=== PATIENT | male | born 1985 | race Caucasian/White ===

== ENCOUNTER 2020-09-07 13:01 | Observation (INO) | payer OTHER ==
[2020-09-07] MEDS ORDERED: SODIUM CHLORIDE 0.9% 1,000 ML IV STA ×2 (14:20→15:02)
[2020-09-07] MEDS ORDERED: KETOROLAC 15 MG/ML 1 ML VIAL IVP STA (14:20)
[2020-09-07] MEDS ORDERED: ONDANSETRON 4 MG/2 ML VIAL IVP STA (14:20)
[2020-09-07 14:47] LABS: Basophils % (A) 0 %; Eosinophils # (A) 0.1 k/uL (0-0.7); Eosinophils % (A) 1 %; HCT 50.3 % (39.0-53.0); HGB 17.7 gm/dL (13.0-17.5); Lymphocytes # (A) 1.2 k/uL (1.0-4.8); Lymphocytes % (A) 9 %; MCH 31.7 pg (25.0-35.0); MCHC 35.1 g/dL (31.0-37.0); MCV 90.2 fL (80.0-100.0); Mean Platelet Volume 8.5; Monocytes # (A) 0.8 k/uL (0-1.0); Monocytes % (A) 6 %; Neutrophils # (A) 11.3 k/uL (1.3-7.7); Neutrophils % (A) 84 %; Platelet Count 204 k/uL (150-450); RBC 5.57 m/uL (4.30-5.90); RDW 12.3 % (11.5-15.5); WBC 13.5 k/uL (3.8-10.6)
[2020-09-07 14:52] LABS: Appearance,Urine Cloudy (Clear); Bacteria,Urine Rare /hpf; Bilirubin,Urine Negative (Negative); Blood,Urine Negative (Negative); Budding Yeast,Urine Occasional /hpf; Color,Urine Yellow; Glucose,Urine (UA) Negative (Negative); Ketones,Urine 4+ (Negative); Leukocyte Esterase,Urine Negative (Negative); Mucus,Urine Moderate /hpf; Nitrite,Urine Negative (Negative); Protein,Urine 1+ (Negative); RBC,Urine <1 /hpf (0-5); Specific Gravity,Urine 1.031 (1.001-1.035); Urobilinogen,Urine <2.0 mg/dL (<2.0); WBC,Urine 2 /hpf (0-5)
[2020-09-07 14:58] LABS: ALT 31 U/L (4-49); AST 25 U/L (17-59); African American GFR (CKD) >90 (>60 ml/min/1.73 sqM); Albumin 4.8 g/dL (3.5-5.0); Alkaline Phosphatase 125 U/L (38-126); Amylase 47 U/L (30-110); Anion Gap 9 mmol/L; Blood Urea Nitrogen 10 mg/dL (9-20); Calcium 9.8 mg/dL (8.4-10.2); Carbon Dioxide 25 mmol/L (22-30); Chloride 104 mmol/L (98-107); Glucose 114 mg/dL (74-99); Lipase 39 U/L (23-300); Non-African American GFR(CKD) >90 (>60 ml/min/1.73 sqM); Potassium 3.8 mmol/L (3.5-5.1); Sodium 138 mmol/L (137-145); Total Bilirubin 1.1 mg/dL (0.2-1.3); Total Protein 7.5 g/dL (6.3-8.2)
--- NOTE | 2020-09-07 15:00 | ED ---
Abdominal Pain HPI - General Chief Complaint: Abdominal Pain Stated Complaint: ABD pain Time Seen by Provider: 09/07/20 14:02 Source: patient Mode of arrival: ambulatory Limitations: no limitations - History of Present Illness Initial Comments: Patient is a 34-year-old male presenting to emergency Department with complaints of right-sided flank pain for the past week. Patient states his pain started about a week ago, he thought he just did something to his back at work. The pain was minimal then. Patient states yesterday morning his pain intensified, 9/10 on the pain scale. He states he is having nausea and vomiting as well. He describes the pain as in the right flank with radiation towards the right lower quadrant and his groin. Patient states he went to [facility] yesterday, they did lab work and a CT which did not show any findings. They diagnosed with a muscle strain. He was prescribed tramadol and a muscle relaxer, he has been taking these but he is still having a lot of discomfort. He states this pain comes and goes. He denies any fevers but is having sweats and chills when his pain increases. He denies history of abdominal surgeries. The regular bowel movements, denies hematuria or dysuria. He denies any chest pain or shortness of breath. He has no further complaints at this time. - Related Data Allergies Allergy/AdvReac Type Severity Reaction Status Date / Time Penicillins Allergy Unknown Verified 09/07/20 13:34 Childhood Review of Systems ROS Statement: Those systems with pertinent positive or pertinent negative responses have been documented in the HPI. ROS Other: All systems not noted in ROS Statement are negative. Past Medical History Past Medical History: No Reported History History of Any Multi-Drug Resistant Organisms: None Reported Past Surgical History: No Surgical Hx Reported Past Psychological History: No Psychological Hx Reported Smoking Status: Current every day smoker Past Alcohol Use History: Occasional Past Drug Use History: None Reported General Exam - General Exam Comments Initial Comments: GENERAL: Patient is well-developed and well-nourished. Patient is nontoxic and in no acute distress. HEAD: Atraumatic, normocephalic. EYES: Pupils equal round and reactive to light, extraocular movements intact, sclera anicteric, conjunctiva are normal. Eyelids were unremarkable. ENT: Nares patent, oropharynx clear without exudates. Moist mucous membranes. NECK: Normal range of motion, supple without lymphadenopathy or JVD. LUNGS: Unlabored respirations. Breath sounds clear to auscultation bilaterally and equal. No wheezes rales or rhonchi. HEART: Regular rate and rhythm without murmurs, rubs or gallops. ABDOMEN: Soft, mild tenderness with palpation of the right side of the abdomen, normoactive bowel sounds. No guarding, no rebound. No masses appreciated. : Deferred MUSCULOSKELETAL: Normal extremities with adequate strength and normal range of motion, no pitting or edema. No clubbing or cyanosis. NEUROLOGICAL: Patient is alert and oriented x 3. Motor and sensory are also intact. Cranial nerves II through XII grossly intact. Symmetrical smile. Normal speech, normal gait. PSYCH: Normal mood, normal affect. SKIN: Warm, Dry, normal turgor, no rashes or lesions noted. Limitations: no limitations Course Vital Signs 09/07/20 09/07/20 13:31 16:09 Temperature 98.5 F Pulse Rate 84 72 Respiratory 18 18 Rate Blood Pressure 180/109 163/96 O2 Sat by Pulse 98 98 Oximetry Medical Decision Making - Medical Decision Making Patient is a 34-year-old male here with right flank pain with radiation towards the right groin since yesterday morning. Denies any fevers, his vitals are stable except for being hypertensive. Labs show a slight white count 13.5, this is most likely reactive as he does not have a fever, no source of infection. Rest of labs are normal, lipase is normal. Patient does have 4+ ketones in the urine, rare bacteria. CT of the abdomen shows fluids scattered within the small bowel levels, could be enteritis or nonspecific. No signs of appendicitis. Patient given a total of liter and half of fluids, pain control and Zofran, he still appears uncomfortable. I discussed these findings with the patient. Patient is really concerned about going home and having the same things happen as last night. Patient will be admitted for observation, continued on fluids. Patient accepted by Dr. Cuevas. He is in agreement with this plan of care. Case discussed with Dr. Hernandez. - Lab Data Result diagrams: 09/07/20 14:30 09/07/20 14:30 Lab Results 09/07/20 09/07/20 09/07/20 Range/Units 14:30 14:30 14:30 WBC 13.5 H (3.8-10.6) k/uL RBC 5.57 (4.30-5.90) m/uL Hgb 17.7 H (13.0-17.5) gm/dL Hct 50.3 (39.0-53.0) % MCV 90.2 (80.0-100.0) fL MCH 31.7 (25.0-35.0) pg MCHC 35.1 (31.0-37.0) g/dL RDW 12.3 (11.5-15.5) % Plt Count 204 (150-450) k/uL MPV 8.5 Neutrophils % 84 % Lymphocytes % 9 % Monocytes % 6 % Eosinophils % 1 % Basophils % 0 % Neutrophils # 11.3 H (1.3-7.7) k/uL Lymphocytes # 1.2 (1.0-4.8) k/uL Monocytes # 0.8 (0-1.0) k/uL Eosinophils # 0.1 (0-0.7) k/uL Basophils # 0.0 (0-0.2) k/uL Sodium 138 (137-145) mmol/L Potassium 3.8 (3.5-5.1) mmol/L Chloride 104 (98-107) mmol/L Carbon Dioxide 25 (22-30) mmol/L Anion Gap 9 mmol/L BUN 10 (9-20) mg/dL Creatinine 0.83 (0.66-1.25) mg/dL Est GFR (CKD-EPI)AfAm >90 (>60 ml/min/1.73 sqM) Est GFR (CKD-EPI)NonAf >90 (>60 ml/min/1.73 sqM) Glucose 114 H (74-99) mg/dL Calcium 9.8 (8.4-10.2) mg/dL Total Bilirubin 1.1 (0.2-1.3) mg/dL AST 25 (17-59) U/L ALT 31 (4-49) U/L Alkaline Phosphatase 125 (38-126) U/L Total Protein 7.5 (6.3-8.2) g/dL Albumin 4.8 (3.5-5.0) g/dL Amylase 47 (30-110) U/L Lipase 39 (23-300) U/L Urine Color Yellow Urine Appearance Cloudy (Clear) Urine pH 7.0 (5.0-8.0) Ur Specific [place] 1.031 (1.001-1.035) Urine Protein 1+ H (Negative) Urine Glucose (UA) Negative (Negative) Urine Ketones 4+ H (Negative) Urine Blood Negative (Negative) Urine Nitrite Negative (Negative) Urine Bilirubin Negative (Negative) Urine Urobilinogen <2.0 (<2.0) mg/dL Ur Leukocyte Esterase Negative (Negative) Urine RBC <1 (0-5) /hpf Urine WBC 2 (0-5) /hpf Urine Bacteria Rare H (None) /hpf Urine Mucus Moderate H (None) /hpf Urine Yeast (Budding) Occasional H (None) /hpf Disposition Clinical Impression: Dehydration, Abdominal pain Disposition: ADMITTED IP TO THIS [facility] Condition: Stable Is patient prescribed a controlled substance at d/c from ED?: No Referrals: Jose Spencer MD [Primary Care Provider] - 1-2 days Decision Date: 09/07/20 Decision Time: 16:59
--- NOTE | 2020-09-07 15:17 | CT ---
EXAMINATION TYPE: CT abdomen pelvis w con DATE OF EXAM: 09/07/2020 COMPARISON: NONE HISTORY: 34-year-old male Right sided abdominal pain. TECHNIQUE: Contiguous axial scanning of the abdomen and pelvis following administration of 100 ml Iso parisa 300 IV contrast. Delayed images through the kidneys and coronal/sagittal reconstructions perform ed. CT DLP: 943.8 mGycm Automated exposure control for dose reduction was used. FINDINGS: Heart normal size without pericardial effusion. Lung bases clear without pleural effusion. No focal liver lesion or biliary ductal dilatation. Portal venous system is patent. Gallbladder, adrenal glands, kidneys, spleen, and pancreas appear within normal limits. No dilated small bowel, free fluid, or free air. No mesenteric or retroperitoneal lymphadenopathy. Some scattered fluid within small bowel loops throughout the abdomen. Normal appendix. Mild stool burden. No pericolonic inflammatory change. Bladder nondistended. Prostate gland measures 4.3 cm wide, mildly enlarged. No abnormal fluid collect ion in the pelvis or pelvic lymphadenopathy. Pelvic phleboliths. Bones: No osseous destructive process. IMPRESSION: 1. FLUID SCATTERED WITHIN SMALL BOWEL LOOPS THROUGHOUT THE ABDOMEN. THIS COULD BE TRANSIENT OR COULD REPRESENT A NONSPECIFIC MILD ENTERITIS. 2. OTHERWISE, NO ACUTE INFLAMMATORY PROCESS IDENTIFIED TO EXPLAIN THE PATIENT'S SYMPTOMS. NORMAL APPE NDIX. 3. MILD PROSTATOMEGALY AT 4.3 CM WIDE.
[2020-09-07] MEDS ORDERED: MORPHINE SULFATE 4 MG/ML SYRINGE IVP STA (15:22)
[2020-09-07] MEDS ORDERED: NALOXONE 0.4 MG/ML 1 ML VIAL IV PRN (16:55)
[2020-09-07] MEDS ORDERED: ACETAMINOPHEN TAB 325 MG TAB PO PRN (16:55)
[2020-09-07] MEDS ORDERED: ONDANSETRON 4 MG/2 ML VIAL IVP PRN (16:55)
[2020-09-07] MEDS: DEXTROSE 5%-0.45% NACL 1,000 ML IV SCH ×2 (17:27→22:25)
[2020-09-07] MEDS: KETOROLAC 15 MG/ML 1 ML VIAL IVP PRN (17:43)
--- NOTE | 2020-09-07 22:34 | P.HPIM ---
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 Patient follows with Dr. Spencer. Patient got on Monday that is 2 days ago. Patient for 1 week has noticed some sprain in the right flank area. But he is able to continue his work and no trouble eating drinking. Monday night patient said having increasing right-sided lower abdominal pain in the flank area going down to the pelvic area. He has some chills and did break out in a sweat also nauseated. Normally has 2 or 3 bowel movements per day. 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 Patient's pain was rather significant. Yesterday evening he went to [facility]. The computed tomography scan of the abdomen. Was unremarkable. Was sent home. Patient and decided to come here as symptoms were getting worse. No urinary symptoms. Has not had a bowel movement since yesterday. Nausea. Patient's at the bedside Review of systems: GEN.: Tired, chills EYES: None HEENT: None NECK: None RESPIRATORY: None CARDIOVASCULAR: None GASTROINTESTINAL: As above GENITOURINARY: None MUSCULOSKELETAL: None LYMPHATICS: None HEMATOLOGICAL: None PSYCHIATRY: None NEUROLOGICAL: None Past medical history to include: Unremarkable Social history: 3 days ago. Smokes a pack a day since age of 17. Drinks about 10-12 beers once a week. 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 EYES: Pupils equal. Conjunctiva normal. HEENT: External appearance of nose and ears normal, oral cavity grossly normal. NECK: JVD not raised; masses not palpable. HEART: First and second heart sounds are normal; no edema. LUNGS: Respiratory rate normal; clear to auscultation. ABDOMEN: Soft, mild right lower quadrant tenderness, no guarding rigidity, liver spleen not palpable, no masses palpable. PSYCH: [Alert and oriented x3; mood and affect anxious l. NEUROLOGICAL: Cranial nerves grossly intact; no facial asymmetry, power and sensation grossly intact. LYMPHATICS: No lymph nodes palpable in the axilla and neck INVESTIGATIONS, reviewed in the clinical context: WBC 13.5 hemoglobin 7.7 platelets 204 potassium 3.8 creatinine 0.83 UA: Protein 1+, ketone 4+ Coronavirus [PCI]-not detected Computed tomography scan of the abdomen pelvis: Fluid scattered within the small bowel loops throughout the abdomen. Assessment and plan: -This is a patient who presents with over 24 hours of increasing lower abdominal pain, but bouts of perspiration nausea. No change in bowel habit no urinary symptoms. No obvious fever. Most likely enteritis, could be viral. Patient's abdominal examination is relatively benign. -Reactive leukocytosis Patient be placed on D5.45 at 20 mL an hour. Lovenox for DVT prophylaxis. Patient be started on a full liquid diet. Advance as tolerated. Does not appea r to be surgical at this point. Care discussed with the patient and at the bedside. Questions answered. Past Medical History Past Medical History: No Reported History History of Any Multi-Drug Resistant Organisms: None Reported Past Surgical History: No Surgical Hx Reported Past Psychological History: No Psychological Hx Reported Smoking Status: Current every day smoker Past Alcohol Use History: Occasional Past Drug Use History: None Reported Medications and Allergies Home Medications Medication Instructions Recorded Confirmed Type No Known Home Medications 09/07/20 09/07/20 History Allergies Allergy/AdvReac Type Severity Reaction Status Date / Time Penicillins Allergy Unknown Verified 09/07/20 17:15 Childhood Physical Exam Vitals: Vital Signs Temp Pulse Pulse Resp BP BP Pulse Ox 09/07/20 21:21 98.1 F 83 16 144/89 99 09/07/20 20:14 98.2 F 80 16 140/88 100 09/07/20 18:16 98.0 F 80 18 140/98 98 09/07/20 16:09 72 18 163/96 98 09/07/20 13:31 98.5 F 84 18 180/109 98 Intake and Output 09/07/20 09/07/20 09/07/20 06:59 14:59 22:59 Other: Weight 90.718 kg Results CBC & Chem 7: 09/07/20 14:30 09/07/20 14:30 Labs: Abnormal Lab Results - Last 24 Hours (Table) 09/07/20 09/07/20 09/07/20 Range/Units 14:30 14:30 14:30 WBC 13.5 H (3.8-10.6) k/uL Hgb 17.7 H (13.0-17.5) gm/dL Neutrophils # 11.3 H (1.3-7.7) k/uL Glucose 114 H (74-99) mg/dL Urine Protein 1+ H (Negative) Urine Ketones 4+ H (Negative) Urine Bacteria Rare H (None) /hpf Urine Mucus Moderate H (None) /hpf Urine Yeast (Budding) Occasional H (None) /hpf
[2020-09-08] MEDS: DEXTROSE 5%-0.45% NACL 1,000 ML IV SCH ×3 (04:03→12:04)
[2020-09-08 06:44] LABS: Basophils # (A) 0.1 k/uL (0-0.2); Basophils % (A) 1 %; Eosinophils # (A) 0.1 k/uL (0-0.7); Eosinophils % (A) 1 %; HCT 46.8 % (39.0-53.0); HGB 16.2 gm/dL (13.0-17.5); Lymphocytes # (A) 2.7 k/uL (1.0-4.8); Lymphocytes % (A) 30 %; MCH 32.1 pg (25.0-35.0); MCHC 34.7 g/dL (31.0-37.0); MCV 92.3 fL (80.0-100.0); Mean Platelet Volume 8.3; Monocytes # (A) 0.6 k/uL (0-1.0); Monocytes % (A) 7 %; Neutrophils # (A) 5.4 k/uL (1.3-7.7); Neutrophils % (A) 60 %; Platelet Count 176 k/uL (150-450); RBC 5.07 m/uL (4.30-5.90); RDW 12.6 % (11.5-15.5)
[2020-09-08 06:54] LABS: ALT 21 U/L (4-49); AST 21 U/L (17-59); African American GFR (CKD) >90 (>60 ml/min/1.73 sqM); Albumin 3.6 g/dL (3.5-5.0); Albumin/Globulin Ratio 1.5; Alkaline Phosphatase 85 U/L (38-126); Anion Gap 3 mmol/L; Blood Urea Nitrogen 10 mg/dL (9-20); Calcium 8.6 mg/dL (8.4-10.2); Carbon Dioxide 27 mmol/L (22-30); Chloride 107 mmol/L (98-107); Globulin 2.4 g/dL; Glucose 104 mg/dL (74-99); Non-African American GFR(CKD) >90 (>60 ml/min/1.73 sqM); Potassium 4.2 mmol/L (3.5-5.1); Sodium 137 mmol/L (137-145); Total Bilirubin 0.6 mg/dL (0.2-1.3)
[2020-09-08] MEDS: MORPHINE SULFATE 2 MG/ML SYRINGE IVP PRN ×2 (08:28→20:12)
[2020-09-08] MEDS: KETOROLAC 15 MG/ML 1 ML VIAL IVP PRN (10:23)
[2020-09-08] MEDS: LACTATED RINGERS 1,000 ML IV SCH ×2 (12:03→21:34)
--- NOTE | 2020-09-08 12:54 | P.GSCN ---
History of Present Illness Consult date: 09/08/20 Reason for Consult: Abdominal pain History of present illness: 34-year-old male presents to the ER at [place] on Monday with complaints of right flank discomfort. Pain was associated with nausea and diminished appetite. He had a CAT scan performed and was discharged home. Came back to the ER locally yesterday with increasing discomfort now radiating from the right flank to the right lower quadrant. Appetite has improved and he is tolerating full liquids. Pain persists this morning. No history of similar events. Patient did pull a back muscle while working about 1 week ago. 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 No bowel movement since Monday. He had a repeat CAT scan performed here with contrast which showed a normal-appearing appendix and no inflammatory changes. Denies hematuria or dysuria. No sick contacts. White blood cell count initially elevated but normalized now. Says it does not hurt when his abdomen is pressed upon only when he moves about. Review of Systems The patient denies any acute changes in vision or hearing, no dysphagia or odynophagia, no chest pain or shortness of breath, no dysuria or hematuria, no headache, no runny nose, no rectal bleeding or melena, no unexplained weight loss Past Medical History Past Medical History: No Reported History History of Any Multi-Drug Resistant Organisms: None Reported Past Surgical History: No Surgical Hx Reported Past Anesthesia/Blood Transfusion Reactions: No Reported Reaction Past Psychological History: No Psychological Hx Reported Smoking Status: Current every day smoker Past Alcohol Use History: Occasional Past Drug Use History: None Reported Medications and Allergies Home Medications Medication Instructions Recorded Confirmed Type No Known Home Medications 09/07/20 09/07/20 History Allergies Allergy/AdvReac Type Severity Reaction Status Date / Time Penicillins Allergy Unknown Verified 09/07/20 17:15 Childhood Surgical - Exam Vital Signs Temp Pulse Resp BP Pulse Ox 98.5 F 84 18 180/109 98 09/07/20 13:31 09/07/20 13:31 09/07/20 13:31 09/07/20 13:31 09/07/20 13:31 Physical exam: General: Well-developed, well-nourished HEENT: Normocephalic, sclerae nonicteric Abdomen: Nontender, nondistended Extremities: No edema Neuro: Alert and oriented Results - Labs 09/08/20 06:07 09/08/20 06:07 Abnormal Lab Results - Last 24 Hours (Table) 09/07/20 09/07/20 09/07/20 Range/Units 14:30 14:30 14:30 WBC 13.5 H (3.8-10.6) k/uL Hgb 17.7 H (13.0-17.5) gm/dL Neutrophils # 11.3 H (1.3-7.7) k/uL Glucose 114 H (74-99) mg/dL Total Protein (6.3-8.2) g/dL Urine Protein 1+ H (Negative) Urine Ketones 4+ H (Negative) Urine Bacteria Rare H (None) /hpf Urine Mucus Moderate H (None) /hpf Urine Yeast (Budding) Occasional H (None) /hpf 09/08/20 Range/Units 06:07 WBC (3.8-10.6) k/uL Hgb (13.0-17.5) gm/dL Neutrophils # (1.3-7.7) k/uL Glucose 104 H (74-99) mg/dL Total Protein 6.0 L (6.3-8.2) g/dL Urine Protein (Negative) Urine Ketones (Negative) Urine Bacteria (None) /hpf Urine Mucus (None) /hpf Urine Yeast (Budding) (None) /hpf Diabetes panel 09/07/20 09/08/20 Range/Units 14:30 06:07 Sodium 138 137 (137-145) mmol/L Potassium 3.8 4.2 (3.5-5.1) mmol/L Chloride 104 107 (98-107) mmol/L Carbon Dioxide 25 27 (22-30) mmol/L BUN 10 10 (9-20) mg/dL Creatinine 0.83 0.84 (0.66-1.25) mg/dL Glucose 114 H 104 H (74-99) mg/dL Calcium 9.8 8.6 (8.4-10.2) mg/dL AST 25 21 (17-59) U/L ALT 31 21 (4-49) U/L Alkaline Phosphatase 125 85 (38-126) U/L Total Protein 7.5 6.0 L (6.3-8.2) g/dL Albumin 4.8 3.6 (3.5-5.0) g/dL Calcium panel 09/07/20 09/08/20 Range/Units 14:30 06:07 Calcium 9.8 8.6 (8.4-10.2) mg/dL Albumin 4.8 3.6 (3.5-5.0) g/dL Pituitary panel 09/07/20 09/08/20 Range/Units 14:30 06:07 Sodium 138 137 (137-145) mmol/L Potassium 3.8 4.2 (3.5-5.1) mmol/L Chloride 104 107 (98-107) mmol/L Carbon Dioxide 25 27 (22-30) mmol/L BUN 10 10 (9-20) mg/dL Creatinine 0.83 0.84 (0.66-1.25) mg/dL Glucose 114 H 104 H (74-99) mg/dL Calcium 9.8 8.6 (8.4-10.2) mg/dL Adrenal panel 09/07/20 09/08/20 Range/Units 14:30 06:07 Sodium 138 137 (137-145) mmol/L Potassium 3.8 4.2 (3.5-5.1) mmol/L Chloride 104 107 (98-107) mmol/L Carbon Dioxide 25 27 (22-30) mmol/L BUN 10 10 (9-20) mg/dL Creatinine 0.83 0.84 (0.66-1.25) mg/dL Glucose 114 H 104 H (74-99) mg/dL Calcium 9.8 8.6 (8.4-10.2) mg/dL Total Bilirubin 1.1 0.6 (0.2-1.3) mg/dL AST 25 21 (17-59) U/L ALT 31 21 (4-49) U/L Alkaline Phosphatase 125 85 (38-126) U/L Total Protein 7.5 6.0 L (6.3-8.2) g/dL Albumin 4.8 3.6 (3.5-5.0) g/dL Assessment and Plan (1) Abdominal pain Narrative/Plan: 34-year-old male with unusual presentation of right flank and abdominal pain. C AT scan reviewed. No bowel pathology noted. Patient states he was having right-sided back pain after lifting heavy objects at work 1 week ago. Patient questioned whether the pain is having now could be related to that or not. Certainly musculoskeletal source of pain is a reasonable option. Continue advancing diet. Continue observation. We'll follow. Current Visit: Yes Status: Acute Code(s): R10.9 - UNSPECIFIED ABDOMINAL PAIN SNOMED Code(s): 42954594
--- NOTE | 2020-09-08 19:11 | P.PN ---
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 Patient follows with Dr. Spencer. Patient got on Monday that is 2 days ago. Patient for 1 week has noticed some sprain in the right flank area. But he is able to continue his work and no trouble eating drinking. Monday night patient said having increasing right-sided lower abdominal pain in the flank area going down to the pelvic area. He has some chills and did break out in a sweat also nauseated. Normally has 2 or 3 bowel movements per day. 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 Patient's pain was rather significant. Yesterday evening he went to [facility]. The computed tomography scan of the abdomen. Was unremarkable. Was sent home. Patient and decided to come here as symptoms were getting worse. No urinary symptoms. Has not had a bowel movement since yesterday. Nausea. Patient's at the bedside Admitted with right lower abdominal pain. Could be enteritis. Antibiotics were held. IV fluids. Today: Feeling a bit better. Still this morning and increasing pain in the right lower quadrant area just above the hip area. Does not have an appetite. No nausea vomiting. No fever. at the bedside. No urinary or GI symptoms. Nausea much improved. Review of systems: Was done for constitutional, cardiovascular, GI, pulmonary. relevant finding as above Active Medications Acetaminophen (Acetaminophen Tab 325 Mg Tab) 650 mg PO Q6HR PRN PRN Reason: Mild Pain or Fever > 100.5 Last Admin: 09/07/20 22:24 Dose: 650 mg Documented by: Lactated Ringer's (Lactated Ringers) 1,000 mls @ 125 mls/hr IV .Q8H GIRMA Last Admin: 09/08/20 12:03 Dose: 125 mls/hr Documented by: Ketorolac Tromethamine (Ketorolac 15 Mg/Ml 1 Ml Vial) 15 mg IVP Q6HR PRN PRN Reason: Moderate Pain Stop: 09/10/20 16:56 Last Admin: 09/08/20 10:23 Dose: 15 mg Documented by: Morphine Sulfate (Morphine Sulfate 2 Mg/Ml Syringe) 2 mg IVP Q2H PRN PRN Reason: Pain/Discomfort Last Admin: 09/08/20 08:28 Dose: 2 mg Documented by: Naloxone HCl (Naloxone 0.4 Mg/Ml 1 Ml Vial) 0.2 mg IV Q2M PRN PRN Reason: Opioid Reversal Ondansetron HCl (Ondansetron 4 Mg/2 Ml Vial) 4 mg IVP Q8HR PRN PRN Reason: Nausea And Vomiting Past medical history to include: Unremarkable Social history: 3 days ago. Smokes a pack a day since age of 17. Drinks about 10-12 beers once a week. 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 EYES: Pupils equal. Conjunctiva normal. NECK: JVD not raised; masses not palpable. HEART: First and second heart sounds are normal; no edema. LUNGS: Respiratory rate normal; clear to auscultation. ABDOMEN: Soft, mild right lower quadrant tenderness, no guarding rigidity, liver spleen not palpable, no masses palpable. PSYCH: [Alert and oriented x3; mood and affect anxious INVESTIGATIONS, reviewed in the clinical context: : WBC 9 hemoglobin 16.2 potassium 4.2 creatinine 0.84 WBC 13.5 hemoglobin 7.7 platelets 204 potassium 3.8 creatinine 0.83 UA: Protein 1+, ketone 4+ Coronavirus [PCI]-not detected Computed tomography scan of the abdomen pelvis: Fluid scattered within the small bowel loops throughout the abdomen. Assessment and plan: -Possible acute viral enteritis: This is a patient who presents with over 24 hours of increasing lower abdominal pain, but bouts of perspiration nausea. No change in bowel habit no urinary symptoms. No obvious fever. . Patient's abdominal examination is relatively benign. Patient's abdominal examination relatively benign. Could be muscular pain. Get a surgical opinion -Reactive leukocytosis-improved -Ketonuria,'s from starvation IV fluids Continue IV fluids. Consult surgery. Discussed with the patient and . Encourage oral intake
[2020-09-08] MEDS: FAMOTIDINE 20 MG TAB PO SCH (20:12)
[2020-09-09] MEDS: LACTATED RINGERS 1,000 ML IV SCH ×3 (04:13→19:53)
[2020-09-09] MEDS: MORPHINE SULFATE 2 MG/ML SYRINGE IVP PRN (07:38)
[2020-09-09] MEDS: FAMOTIDINE 20 MG TAB PO SCH ×2 (07:38→19:53)
--- NOTE | 2020-09-09 12:48 | P.PN ---
<Mary Garcia - Last Filed: 09/09/20 12:41> Subjective Progress Note Date: 09/09/20 Chief complaint: Abdominal pain HISTORY OF PRESENT ILLNESS: Patient is complaining of right sided abdominal and flank pain. He ate [employer] last night with no increase in pain. He reports his pain is similar to his pain on admission. He is complaining of swelling in the right lower abdomen compared to the left. He had a normal BM this morning. Afebrile WBC 9.0 PHYSICAL EXAM: VITAL SIGNS: Reviewed. GENERAL: Well-developed in no acute distress. HEENT: No sclera icterus. Extraocular movements grossly intact. Moist buccal mucosa. Head is atraumatic, normocephalic. ABDOMEN: Soft. Nondistended. Minimal swelling noted on the right lower abdomen. Minimal tenderness with palpation NEUROLOGIC: Awake and alert. ASSESSMENT: 1. Abdominal pain located on the right flank and right lower abdomen. No bowel pathology noted on CAT scan. Patient's pain may be musculoskeletal. PLAN: -Further recommendations forthcoming per surgeon -Continue pain medication as needed Physician Instant Print Operator note has been reviewed by physician. Signing provider agrees with the documented findings, assessment, and plan of care. Objective - Vital Signs Vital signs: Vital Signs Temp 97.7 F 09/09/20 07:00 Pulse 78 09/09/20 07:00 Resp 16 09/09/20 07:00 BP 134/88 09/09/20 07:00 Pulse Ox 95 09/09/20 07:00 Intake & Output 09/08/20 09/09/20 09/09/20 18:59 06:59 18:59 Other: Voiding Method Toilet # Voids 2 1 - Labs CBC & Chem 7: 09/08/20 06:07 09/08/20 06:07 <Johnny Underwood - Last Filed: 09/09/20 20:47> Subjective Patient says his symptoms have improved slightly. No increased discomfort with eating solid foods last night. He is afebrile. He thinks his abdominal wall in the right lower abdomen is more swollen. His exam findings are fairly stable with mild right abdominal wall tenderness and fairly symmetric abdominal appearance. Agree with plans for orthopedic evaluation. We'll follow. Objective - Vital Signs Vital signs: Vital Signs Temp 98 F 09/09/20 19:21 Pulse 78 09/09/20 19:21 Resp 16 09/09/20 19:21 BP 132/83 09/09/20 19:21 Pulse Ox 96 09/09/20 19:21 Intake & Output 09/09/20 09/09/20 09/10/20 06:59 18:59 06:59 Intake Total 0 Balance 0 Intake: Oral 0 Other: Voiding Method Toilet # Voids 1 3 - Labs CBC & Chem 7: 09/08/20 06:07 09/08/20 06:07 Assessment and Plan (1) Abdominal pain Current Visit: Yes Status: Acute Code(s): R10.9 - UNSPECIFIED ABDOMINAL PAIN SNOMED Code(s): 06170702
--- NOTE | 2020-09-09 13:24 | XR ---
EXAM TYPE: LUMBAR SPINE X RAY SERIES COMPARISON: NONE HISTORY: Pain TECHNIQUE: 4 views are submitted. FINDINGS: Alignment is anatomic. The pedicles are intact. The transverse processes are intact. There is no s pondylolysis or spondylolisthesis. IMPRESSION: 1. No acute process.
--- NOTE | 2020-09-09 14:33 | CT ---
EXAMINATION TYPE: CT lumbar spine wo con DATE OF EXAM: 09/09/2020 COMPARISON: HISTORY: right lumbar pain CT DLP: 992 mGycm CONTRAST: None TECHNIQUE: CT of the lumbar spine is performed on a spiral scan at 3 mm thick sections. Reconstructed images are performed in the coronal and sagittal planes. FINDINGS: CT is performed from T11 through S1. Posterior endplate spurring is present at T12-L1. This has mild to moderate anterior thecal sac compr ession. AP spinal canal stenosis however is not evident measuring 1.1 cm in AP dimension. No obvious cord compression is identified. MRI could closer evaluate this finding. Remaining disc levels appear normal without focal disc herniation, significant disc bulge, spinal can al stenosis or neural foraminal stenosis. IMPRESSION: Endplate spurring with posterior extension into the spinal canal contributing to narrowing without AP spinal canal stenosis. Further evaluation can be performed with MRI.
[2020-09-09] MEDS ORDERED: DEXAMETHASONE SOD PHOSPHATE 10 MG/ML 1 ML VIAL IV STA (16:20)
--- NOTE | 2020-09-09 17:11 | P.CNOR ---
History of Present Illness - [facility] Consult date: 09/09/20 Consult reason: low back pain History of present illness: Patient is a 34-year-old male who presented to [facility] on 09/07/2020 for further evaluation of low back pain/right lower quadrant pain. Patient apparently has been noticing the discomfort in his low back for about a week or so, over the weekend the pain did seem to worsen which prompted him to be evaluated at [facility]. They diagnosed the patient with a strain, he was discharged with tramadol and Flexeril. Patient's pain worsened in the migrated more to the right lower quadrant, he reported [facility] at that time. Patient was admitted under internal medicine, he was then followed by Gen. surgery. Our orthopedic team was consulted today for further evaluation. Both x-rays and computed tomography scan of the lumbar spine have been ordered by internal medicine. Patient was an elevated today at bedside, his is present with him. He is resting comfortably in his bed. He notes mostly discomfort now seems to be the anterior flank and more the right lower quadrant of his abdomen. He feels that when he flexes forward and moves as one most of the discomfort is there. He states that the IV pain medication is helping. He did not get much relief with the Toradol or Tylenol was given. General surgery has found no acute abdominal processes at this time. Patient states that he did lift a heavy cooler this past Monday but did not get any acute pain at the time of that incident. 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 Patient denies any previous surgery of the cervical, thoracic or lumbar spine. He denies any general surgery involving the abdomen. currently patient has no headaches, lightheadedness, chest pain, shortness of breath, nausea vomiting, fever or chills. He denies any loss of bowel or bladder function at this time. He denies any radicular pain symptoms involving the upper extremities or lower extremities. He denies any numbness or tingling of the genital area or perineal area. Review of Systems Constitutional: Reports as per HPI Past Medical History Past Medical History: No Reported History History of Any Multi-Drug Resistant Organisms: None Reported Past Surgical History: No Surgical Hx Reported Past Anesthesia/Blood Transfusion Reactions: No Reported Reaction Past Psychological History: No Psychological Hx Reported Smoking Status: Current every day smoker Past Alcohol Use History: Occasional Past Drug Use History: None Reported Medications and Allergies Home Medications Medication Instructions Recorded Confirmed Type Naproxen [Naprosyn] 250 mg PO BID #14 tab 09/09/20 Rx RX: Acetaminophen Tab [Tylenol] 650 mg PO Q6HR PRN tab 09/09/20 Rx RX: Famotidine [Pepcid] 20 mg PO BID #60 tab 09/09/20 Rx Allergies Allergy/AdvReac Type Severity Reaction Status Date / Time Penicillins Allergy Unknown Verified 09/07/20 17:15 Childhood Physical Examination Gen: AOx3, NAD VSS stable at this time Palpation: No significant tenderness noted with palpation of the lower thoracic or lumbar region, both midline or paraspinal ROM: Patient was visualized going from a lying position to both the seated in standing position in the hospital room. He had some discomfort in the right lower quadrant of the abdomen when flexing forward in bed. Full range of motion in all major muscle groups of the upper and lower bilaterally extremities No discomfort is noted in the groin or lateral hip with both hip flexion along with internal and external rotation of the right lower extremity Sensory Exam: Senory exam to light touch is intact C5-T1 Senosry exam to light touch is intact L2-S1 Motor: 55 strength noted in the bilateral upper extremities with regards to shoulder abduction, elbow flexion, elbow extension, wrist extension, wrist flexion, finge r intrinsic 55 strength noted in the bilateral lower extremities with hip flexion, knee flexion, knee extension, plantar flexion, dorsiflexion, EHL, FHL Reflexes: 2/4 in all UE and LE Negative Kourtney's bilaterally, negative Babinski bilaterally, negative clonus bilaterally Special tests: Negative straight leg raise bilaterally Results - Labs Labs: H & H 09/07/20 09/08/20 Range/Units 14:30 06:07 Hgb 17.7 H 16.2 (13.0-17.5) gm/dL Hct 50.3 46.8 (39.0-53.0) % Result Diagrams: 09/08/20 06:07 09/08/20 06:07 - Diagnostic results CT Scan - lumbar: report reviewed, image reviewed (X-rays and computed tomography scan of the lumbar spine were reviewed along with reports. Report notes no acute fractures or dislocations. Notable endplate spurring at T12-1, they suggest mild spinal canal stenosis at that level.) Assessment and Plan Assessment: Low back pain Right flank pain/right lower quadrant pain T12-L1 spondylosis Plan: I was able to discuss the case, including both physical exam findings and imaging studies my attending Dr. Perez. No acute orthopedic surgical intervention recommended at this time Difficult to assess if the symptoms the patient is having in the right lower quadrant due to radicular symptoms at the T12-L1 region or a abdominal muscle strain. Patient noted no significant improvement with Toradol treatment along with a muscle relaxer. Pain control, one dose of 10 mg IV Decadron initially, plan to reassess on 09/10/2020 This patient's symptoms improve, anticipated discharge home on Medrol Dosepak along with muscle relaxer. Recommend weight-bear as tolerated at this time GI and DVT prophylaxis per primary medical service Further recommendations to follow after reevaluation 09/10/2020 Time with Patient: Less than 30
[2020-09-09] MEDS: NAPROXEN 250 MG TAB PO SCH ×2 (17:13→19:52)
--- NOTE | 2020-09-09 21:42 | P.PN ---
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 Patient follows with Dr. Spencer. Patient got on Monday that is 2 days ago. Patient for 1 week has noticed some sprain in the right flank area. But he is able to continue his work and no trouble eating drinking. Monday night patient said having increasing right-sided lower abdominal pain in the flank area going down to the pelvic area. He has some chills and did break out in a sweat also nauseated. Normally has 2 or 3 bowel movements per day. 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 Patient's pain was rather significant. Yesterday evening he went to [facility]. The computed tomography scan of the abdomen. Was unremarkable. Was sent home. Patient and decided to come here as symptoms were getting worse. No urinary symptoms. Has not had a bowel movement since yesterday. Nausea. Patient's at the bedside Admitted with right lower abdominal pain. Could be enteritis. Antibiotics were held. IV fluids. Today: Still some decreased appetite. No fever no chills. Normal white count. No urinary or bowel symptoms. [place] to be possibly muscular. Rule out radicular pain from the lumbar spine. Ordered lumbar x-ray and computed tomography scan Review of systems: Was done for constitutional, cardiovascular, GI, pulmonary. relevant finding as above Active Medications Acetaminophen (Acetaminophen Tab 325 Mg Tab) 650 mg PO Q6HR PRN PRN Reason: Mild Pain or Fever > 100.5 Last Admin: 09/07/20 22:24 Dose: 650 mg Documented by: Famotidine (Famotidine 20 Mg Tab) 20 mg PO BID [facility] Last Admin: 09/09/20 19:53 Dose: 20 mg Documented by: Lactated Ringer's (Lactated Ringers) 1,000 mls @ 125 mls/hr IV .Q8H [facility] Last Admin: 09/09/20 19:53 Dose: 125 mls/hr Documented by: Ketorolac Tromethamine (Ketorolac 15 Mg/Ml 1 Ml Vial) 15 mg IVP Q6HR PRN PRN Reason: Moderate Pain Stop: 09/10/20 16:56 Last Admin: 09/08/20 10:23 Dose: 15 mg Documented by: Naloxone HCl (Naloxone 0.4 Mg/Ml 1 Ml Vial) 0.2 mg IV Q2M PRN PRN Reason: Opioid Reversal Naproxen (Naproxen 250 Mg Tab) 250 mg PO TID [facility] Last Admin: 09/09/20 19:52 Dose: 250 mg Documented by: Ondansetron HCl (Ondansetron 4 Mg/2 Ml Vial) 4 mg IVP Q8HR PRN PRN Reason: Nausea And Vomiting Past medical history to include: Unremarkable Social history: 3 days ago. Smokes a pack a day since age of 17. Drinks about 10-12 beers once a week. 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 EYES: Pupils equal. Conjunctiva normal. NECK: JVD not raised; masses not palpable. HEART: First and second heart sounds are normal; no edema. LUNGS: Respiratory rate normal; clear to auscultation. ABDOMEN: Soft, mild right lower quadrant tenderness, no guarding rigidity, liver spleen not palpable, no masses palpable. PSYCH: [Alert and oriented x3; mood and affect anxious INVESTIGATIONS, reviewed in the clinical context: Lumbar computed tomography scan: Posterior). Spotting at T12-L1 [id number] anterior thecal sac compression. Lumbar x-ray: Unremarkable : WBC 9 hemoglobin 16.2 potassium 4.2 creatinine 0.84 WBC 13.5 hemoglobin 7.7 platelets 204 potassium 3.8 creatinine 0.83 UA: Protein 1+, ketone 4+ Coronavirus [PCI]-not detected Computed tomography scan of the abdomen pelvis: Fluid scattered within the small bowel loops throughout the abdomen. Assessment and plan: -Possible acute viral enteritis: Being managed conservatively. -Possibly muscle spasm -Reactive leukocytosis-improved -Ketonuria,'s from starvation IV fluids Did order lumbar x-ray and computed tomography scan. Results as above. Orthopedic consulted.
[2020-09-10] MEDS: LACTATED RINGERS 1,000 ML IV SCH (04:21)
[2020-09-10 07:48] VITALS: BP 152/82; PULSE 77; RESP 17; TEMP 97.4
[2020-09-10] MEDS: FAMOTIDINE 20 MG TAB PO SCH (07:49)
[2020-09-10] MEDS: NAPROXEN 250 MG TAB PO SCH (07:49)
--- NOTE | 2020-09-10 08:28 | P.PN ---
Subjective Progress Note Date: 09/10/20 Principal diagnosis: Low back pain Right flank pain/right lower quadrant pain Right abdominal strain T12-L1 spondylosis Patient was evaluated at bedside, Dr. Perez was present during exam. Patient's symptoms seem to slightly improved since receiving the dose of IV steroids. Patient continues to deny any lightheadedness, chest pain, shortness of breath, nausea vomiting, genital cranial numbness, loss of bowel or bladder function, lower extremity paresthesias. Objective - Vital Signs Vital signs: Vital Signs Temp 97.4 F L 09/10/20 07:00 Pulse 77 09/10/20 07:51 Resp 17 09/10/20 07:51 BP 152/82 09/10/20 07:00 Pulse Ox 97 09/10/20 07:00 Intake & Output 09/09/20 09/10/20 09/10/20 18:59 06:59 18:59 Intake Total 0 Balance 0 Intake: Oral 0 Other: Voiding Method Toilet Toilet # Voids 3 2 - Exam Gen: AOx3, NAD VSS stable at this time Palpation: No significant tenderness noted with palpation of the lower thoracic or lumbar region, both midline or paraspinal ROM: Patient was visualized going from a lying position to both the seated in standing position in the hospital room. He had some discomfort in the right lower quadrant of the abdomen when flexing forward in bed. Full range of motion in all major muscle groups of the upper and lower bilaterally extremities No discomfort is noted in the groin or lateral hip with both hip flexion along with internal and external rotation of the right lower extremity Sensory Exam: Senory exam to light touch is intact C5-T1 Senosry exam to light touch is intact L2-S1 Motor: 55 strength noted in the bilateral upper extremities with regards to shoulder abduction, elbow flexion, elbow extension, wrist extension, wrist flexion, finger intrinsic 55 strength noted in the bilateral lower extremities with hip flexion, knee flexion, knee extension, plantar flexion, dorsiflexion, EHL, FHL Reflexes: 2/4 in all UE and LE Negative Kourtney's bilaterally, negative Babinski bilaterally, negative clonus bilaterally Special tests: Negative straight leg raise bilaterally - Labs CBC & Chem 7: 09/08/20 06:07 09/08/20 06:07 Assessment and Plan Assessment: Low back pain Right flank pain/right lower quadrant pain Right abdominal strain T12-L1 spondylosis Plan: Dr. Perez was available today bedside to discuss treatment options with patient. At this time he feels more musculoskeletal issue, likely an abdominal strain. Plan is for discharge home on Medrol Dosepak. Recommend utilizing Tylenol as needed. We discussed activity level modification, this will include limiting twisting and bending at the waist, and also avoiding heavy lifting Recommend weight-bear as tolerated at this time GI and DVT prophylaxis per primary medical service Other medical specialty recommendations Discharge planning: On an orthopedic standpoint patient is stable for discharge to home today. Our office information will be provided in chart for follow-up Time with Patient: Less than 30
--- NOTE | 2020-09-10 11:07 | P.PN ---
<Mary Garcia - Last Filed: 09/10/20 11:03> Subjective Progress Note Date: 09/10/20 Chief complaint: Abdominal pain HISTORY OF PRESENT ILLNESS: Patient reporting that his right sided abdominal and flank pain and swelling is slightly decreased than yesterday. He was seen by orthopedic service and diagnosed with a possible muscle strain. He was given a dose of dexamethasone and has been receiving Toradol. Patient reports some improvement in his symptoms. He is tolerating diet. He denies any nausea or vomiting. He's having regular bowel movements. He is afebrile. He has been up and ambulating. He is anticipating discharge later today. PHYSICAL EXAM: VITAL SIGNS: Reviewed. GENERAL: Well-developed in no acute distress. HEENT: No sclera icterus. Extraocular movements grossly intact. Moist buccal mucosa. Head is atraumatic, normocephalic. ABDOMEN: Soft. Nondistended. Minimal tenderness with palpation of right sided and flank. No significant swelling. NEUROLOGIC: Awake and alert. ASSESSMENT: 1. Abdominal pain located on the right flank and right lower abdomen. No bowel pathology noted on CAT scan. Patient's pain most likely due to muscle strain PLAN: -Continue treatment plan per orthopedics for muscle strain -Patient can be discharged from surgical standpoint Physician Rn Lactation note has been reviewed by physician. Signing provider agrees with the documented findings, assessment, and plan of care. Objective - Vital Signs Vital signs: Vital Signs Temp 97.4 F L 09/10/20 07:00 Pulse 77 09/10/20 07:51 Resp 17 09/10/20 07:51 BP 152/82 09/10/20 07:00 Pulse Ox 97 09/10/20 07:00 Intake & Output 09/09/20 09/10/20 09/10/20 18:59 06:59 18:59 Intake Total 0 218 Balance 0 218 Intake: Oral 0 218 Other: Voiding Method Toilet Toilet # Voids 3 2 - Labs CBC & Chem 7: 09/08/20 06:07 09/08/20 06:07 <Johnny Underwood - Last Filed: 09/10/20 16:07> Subjective As above. Patient discharged prior to my arrival. Patient to return to the hospital if pain increases, fevers, nausea vomiting, anorexia. Objective - Vital Signs Vital signs: Vital Signs Temp 97.4 F L 09/10/20 07:00 Pulse 77 09/10/20 07:51 Resp 17 09/10/20 07:51 BP 152/82 09/10/20 07:00 Pulse Ox 97 09/10/20 07:00 Intake & Output 09/09/20 09/10/20 09/10/20 18:59 06:59 18:59 Intake Total 0 218 Balance 0 218 Intake: Oral 0 218 Other: Voiding Method Toilet Toilet # Voids 3 2 - Labs CBC & Chem 7: 09/08/20 06:07 09/08/20 06:07 Assessment and Plan (1) Abdominal pain Status: Acute Code(s): R10.9 - UNSPECIFIED ABDOMINAL PAIN SNOMED Code(s): 10660378
--- NOTE | 2020-09-10 17:21 | P.DS ---
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 Patient follows with Dr. Spencer. Patient got on Monday that is 2 days ago. Patient for 1 week has noticed some sprain in the right flank area. But he is able to continue his work and no trouble eating drinking. Monday night patient said having increasing right-sided lower abdominal pain in the flank area going down to the pelvic area. He has some chills and did break out in a sweat also nauseated. Normally has 2 or 3 bowel movements per day. 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 Patient's pain was rather significant. Yesterday evening he went to [facility]. The computed tomography scan of the abdomen. Was unremarkable. Was sent home. Patient and decided to come here as symptoms were getting worse. No urinary symptoms. Has not had a bowel movement since yesterday. Nausea. Patient's at the bedside Admitted with right lower abdominal pain. Could be enteritis. Antibiotics were held. IV fluids. Could be an element of muscle spasm/radicular pain from lumbar vertebra. Patient is managed empirically. Given a short burst of steroids and NSAIDs. Diet was carried back. Computed tomography scan suggestive of possible enteritis Today: Feeling much better today. Cleared by consultants. Foot Gatherer: Dr. Mcpherson from general surgery Dr. Perez from orthopedics Past medical history to include: Unremarkable Social history: 3 days ago. Smokes a pack a day since age of 17. Drinks about 10-12 beers once a week. 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 EYES: Pupils equal. Conjunctiva normal. NECK: JVD not raised; masses not palpable. HEART: First and second heart sounds are normal; no edema. LUNGS: Respiratory rate normal; clear to auscultation. ABDOMEN: Soft, nontender, no guarding rigidity, liver spleen not palpable, no masses palpable. PSYCH: [Alert and oriented x3; mood and affect anxious INVESTIGATIONS, reviewed in the clinical context: Lumbar computed tomography scan: Posterior). Spotting at T12-L1 [id number] anterior thecal sac compression. Lumbar x-ray: Unremarkable : WBC 9 hemoglobin 16.2 potassium 4.2 creatinine 0.84 WBC 13.5 hemoglobin 7.7 platelets 204 potassium 3.8 creatinine 0.83 UA: Protein 1+, ketone 4+ Coronavirus [PCI]-not detected Computed tomography scan of the abdomen pelvis: Fluid scattered within the small bowel loops throughout the abdomen. Assessment and plan: -Possible acute viral enteritis: Being managed conservatively. -Possibly muscle spasm -Possible radicular pain from lumbar spines -Reactive leukocytosis-improved -Ketonuria,'s from starvation Disposition: Home Plan - Discharge Summary Discharge Rx Participant: Yes New Discharge Prescriptions: New Famotidine [Pepcid] 20 mg PO BID #60 tab Naproxen [Naprosyn] 250 mg PO BID #14 tab Acetaminophen Tab [Tylenol] 650 mg PO Q6HR PRN tab PRN Reason: Mild Pain Or Fever > 100.5 methylPREDNISolone [Medrol Dose Pack] 4 mg PO DIRECTED #1 pack Discharge Medication List Acetaminophen Tab [Tylenol] 650 mg PO Q6HR PRN tab 09/09/20 [Rx] Famotidine [Pepcid] 20 mg PO BID #60 tab 09/09/20 [Rx] Naproxen [Naprosyn] 250 mg PO BID #14 tab 09/09/20 [Rx] methylPREDNISolone [Medrol Dose Pack] 4 mg PO DIRECTED #1 pack 09/10/20 [Rx] Follow up Appointment(s)/Referral(s): Johnny Underwood MD [Medical Doctor] - As Needed Jose Spencer MD [Primary Care Provider] - 1-2 days Manuel Perez DO [Doctor of Osteopathic Medicine] - 3 Weeks Patient Instructions/Handouts: Muscle Strain (DC) Activity/Diet/Wound Care/Special Instructions: soft bland diet dc if ok with dr anguiano Orthopedic discharge instructions: 1. Medrol Dosepak, take as instructed 2. [id number] Tylenol as needed 3. Avoid heavy lifting 4. Avoid excessive twisting and bending at the waist 5. Plan for [facility]-up at [facility] [address] Perez
== END 2020-09-10 11:29 ==
LOC: EC 13:01 → 6NMEDSUR 17:04
PROVIDERS: ADMIT Hospitalist; ATTEND Hospitalist
DX: M54.5 Low back pain (principal); R10.31 Right lower quadrant pain; M54.9 Dorsalgia, unspecified; R10.30 Lower abdominal pain, unspecified; M47.815 Spondylosis without myelopathy or radiculopathy, thoracolumbar region; R11.2 Nausea with vomiting, unspecified; R68.83 Chills (without fever); E86.0 Dehydration; D72.828 Other elevated white blood cell count; X50.0XXA Overexertion from strenuous movement or load, initial encounter; T73.0XXA Starvation, initial encounter; M25.78 Osteophyte, vertebrae; R82.4 Acetonuria; F17.210 Nicotine dependence, cigarettes, uncomplicated; Z20.822 Contact with and (suspected) exposure to COVID-19; N40.0 Benign prostatic hyperplasia without lower urinary tract symptoms; Z88.0 Allergy status to penicillin
CPT/HCPCS: 96376; 96361; 96374; 96375; 99285; 36415; 80053 ×2; 82150; 83690; 85025 ×2; 81001; 87635; 72110; 72131; 74177; G0378 ×4; J2270 ×3; J1100; J2405; J1885 ×2; Q9967